=== PATIENT | female | born 1955 | race Caucasian/White ===

== ENCOUNTER 2017-11-25 21:49 | Emergency (ER) | payer OTHER ==
[~2017-11-25] VITALS: Ht 165.1 cm; Wt 73.9 kg
[2017-11-25] MEDS ORDERED: IBUPROFEN 200200 M1 PO (22:00)
[2017-11-25 23:22] LABS: ABSOLUTE BASOPHILS 0.1 thou/uL (0.0-0.2); ABSOLUTE LYMPHOCYTES 2.3 thou/uL (0.8-5.3); ABSOLUTE MONOCYTES 0.7 thou/uL (0.0-1.2); ABSOLUTE NEUTROPHILS 6.6 thou/uL (1.6-8.1); BASOPHILS 0.9 %; EOSINOPHILS 9.5 %; HEMATOCRIT 36.2 % (37.0-47.0); HEMOGLOBIN 11.6 gm/dL (12.0-15.0); LYMPHOCYTES 21.8 %; MCH 24.7 pg (26.0-34.0); MCV 77.1 fL (80.0-100.0); MONOCYTES 6.6 %; NUCLEATED RBCS 0 /100WBC; PLATELET COUNT* 393 thou/uL (150-400); POLYS 61.2 %; RBC 4.69 mil/uL (4.20-5.00); RDW-CV 13.6 % (10.5-14.5); WBC 10.7 thou/uL (4.0-11.0)
[2017-11-25 23:31] LABS: CALCIUM 8.9 mg/dL (8.5-10.1); CREATININE 0.7 mg/dL (0.6-1.3); POTASSIUM 3.4 mmol/L (3.5-5.1)
[2017-11-25 23:35] LABS: ALBUMIN 3.6 g/dL (3.4-5.0); TOTAL BILIRUBIN 0.2 mg/dL (<0.1-1.0); TOTAL PROTEIN 8.1 g/dL (6.4-8.2)
[2017-11-26 00:07] LABS: INFLUENZA A ANTIGEN None Detected (None Detect); INFLUENZA B ANTIGEN None Detected (None Detect)
[2017-11-26] MEDS ORDERED: DIAZEPAM 2MG TAB2 MG PO (00:24)
[2017-11-26 00:33] VITALS: BP 124/66
== END 2017-11-26 00:34 | disposition home or self-care (01) ==
LOC: M.ERS 21:49
PROVIDERS: Personal Emergency Response Attendant
DX: B34.9 Viral infection, unspecified (principal); R42 Dizziness and giddiness

== ENCOUNTER 2017-11-28 19:28 | Emergency (ER) | payer OTHER ==
[~2017-11-28] VITALS: Ht 157.5 cm; Wt 73.0 kg
[~2017-11-28 19:28] MED LIST: DIAZEPAM 2MG TAB2 MG PO; IBUPROFEN 200200 M1 PO
[2017-11-28] MEDS ORDERED: AUGMENTIN 875-1 EACH PO (20:07)
[2017-11-28] MEDS ORDERED: ZOFRAN ODT4 MG PO (20:07)
[2017-11-28] MEDS ORDERED: ANTIVERT25 MG PO (20:07)
[2017-11-28] MEDS ORDERED: HYDROCODONE-AP1 EAC6 PO (20:07)
[2017-11-28 20:15] VITALS: BP 144/68
== END 2017-11-28 20:15 | disposition home or self-care (01) ==
LOC: M.ERS 19:28
DX: H66.93 Otitis media, unspecified, bilateral (principal); J02.9 Acute pharyngitis, unspecified; Z90.710 Acquired absence of both cervix and uterus